=== PATIENT | female | born 1975 | race Caucasian/White ===

== ENCOUNTER 2018-09-10 11:53 | Emergency (ER) | payer OTHER ==
[~2018-09-10] VITALS: Ht 170.2 cm; Wt 77.1 kg
[2018-09-10] MEDS ORDERED: IV NORMAL SALINE 1,000ML 1,000 ML IV SCH (12:34)
--- NOTE | 2018-09-10 12:41 | PHYS DOC ---
Past History Past Medical History: Kidney Stones, Migraines, Other Additional Past Medical Histor: postmenopausal Past Surgical History: Tonsillectomy, Other Additional Past Surgical Histo: knee surgery, lithotripsy Smoking: Non-smoker Alcohol Use: None Drug Use: None Adult General Chief Complaint Chief Complaint: DIZZY/LIGHT HEADED HPI HPI Patient is a 43-year-old female presents with dizziness. She describes it as a lightheaded feeling, worse with going from sitting to standing. This started last night. Patient has been sick for the past 2 weeks with some sinus congestion, a cough, and low-grade fever in the 99 range. She was started on a Z -Geremias 3 days ago. Symptoms have not improved and have actually become worse as noted. Nothing makes the cough better or worse. Sitting makes the dizziness better. There is no rotational component. No head trauma. Patient has a history of migraines but denies there being any headache. No chest pain or palpitations. Symptoms are moderate in intensity[] Review of Systems Review of Systems Constitutional: Denies weight loss or chills [] Eyes: Denies change in visual acuity, redness, or eye pain [] HENT: Denies ear pain or sore throat [] Respiratory: Denies shortness of breath, see history of present illness [] Cardiovascular: No chest pain or palpitations[] GI: Denies abdominal pain, nausea, vomiting, bloody stools or diarrhea [] : Denies dysuria or hematuria [] Musculoskeletal: Denies back pain or joint pain [] Integument: Denies rash or skin lesions [] Neurologic: Denies headache, focal weakness or sensory changes [] Endocrine: Denies polyuria or polydipsia [] All other systems were reviewed and found to be within normal limits, except as documented in this note. Physical Exam Physical Exam Constitutional: Well developed, well nourished, no acute distress, non-toxic appearance. [] HENT: Normocephalic, atraumatic, bilateral external ears normal, oropharynx moist, no oral exudates, nose normal. Bilateral maxillary sinus tenderness to percussion [] Eyes: PERRLA, EOMI, conjunctiva normal, no discharge. [] Neck: Normal range of motion, no tenderness, supple, no stridor. [] Cardiovascular:Heart rate regular rhythm, no murmur [] Lungs & Thorax: Bilateral breath sounds clear to auscultation [] Abdomen: Bowel sounds normal, soft, no tenderness, no masses, no pulsatile masses. [] Skin: Warm, dry, no erythema, no rash. [] Back: No tenderness, no CVA tenderness. [] Extremities: No tenderness, no cyanosis, no clubbing, ROM intact, no edema. [] Neurologic: Alert and oriented X 3, normal motor function, normal sensory function, no focal deficits noted. No nystagmus noted[] Psychologic: Affect normal, judgement normal, mood normal. [] EKG EKG [] Radiology/Procedures Radiology/Procedures [] Course & Med Decision Making Course & Med Decision Making Pertinent Labs and Imaging studies reviewed. (See chart for details) ED course: Patient arrived, was placed in bed, and tolerated exam well. Her initial orthostatic vital signs showed a decreasing blood pressure she stood up as well as an increase in heart rate of 25 when going from laying to standing. She was given IV fluids for this. She had some improvement with the IV fluids. X-ray was obtained without any complications. After the return of the laboratory and imaging findings, these were discussed with the patient voiced understanding. All questions were answered. She was discharged in improved condition. Medical decision making: There is no evidence of pneumonia, no pneumothorax, no evidence of an acute coronary syndrome, dysrhythmia, nor significant electrolyte abnormality.[] Dragon Disclaimer Dragon Disclaimer This electronic medical record was generated, in whole or in part, using a voice recognition dictation system. Departure Departure: Impression: Primary Impression: Dizziness Additional Impressions: Dehydration Cough Disposition: 01 HOME, SELF-CARE Condition: IMPROVED Patient Instructions: Cough, Adult, Dehydration, Adult, Dizziness Additional Instructions: Drink plenty of fluids. Follow-up with your regular doctor in 2 days. If you do not have regular doctor list of local clinics will be provided. Return to the ER if worsening dizziness or any other concerns. Scripts Benzonatate (TESSALON PERLE) 100 Mg Capsule 1 CAP PO TID for cough, #30 CAP Prov: TERA DIAZ DO 09/10/18 Albuterol Sulfate (VENTOLIN HFA INHALER) 18 Gm Hfa.aer.ad 2 PUFF IH PRN Q4HRS PRN for FOR ASTHMA, #1 INHALER 0 Refills Prov: TERA DIAZ DO 09/10/18 Problem Qualifiers TERA DIAZ DO Sep 10, 2018 12:41
[2018-09-10 13:06] LABS: BASO % 1 % (0-3); EOS # 0.1 x10^3/uL (0.0-0.7); EOS % 3 % (0-3); HEMATOCRIT 42.3 % (36.0-47.0); HEMOGLOBIN 14.1 g/dL (12.0-15.5); LYMPH # 1.4 x10^3/uL (1.0-4.8); LYMPH % 29 % (24-48); MEAN CORPUSCULAR HEMOGLOBIN 31 pg (25-35); MEAN CORPUSCULAR HGB CONC 33 g/dL (31-37); MEAN CORPUSCULAR VOLUME 92 fL (79-100); MONO # 0.3 x10^3/uL (0.0-1.1); MONO % 6 % (0-9); NEUT # 3.1 x10^3uL (1.8-7.7); NEUT % 61 % (31-73); PLATELET COUNT 311 x10^3/uL (140-400); RED CELL DISTRIBUTION WIDTH 12.9 % (11.5-14.5)
--- NOTE | 2018-09-10 13:17 | RAD ---
PORTABLE CHEST 1V History: Dizziness Comparison: None. Findings: Single view of the chest is submitted. There is no infiltrate, pneumothorax, or effusion. The pericardial cardiac silhouette is within normal limits in size. Impression: 1. There is no radiographic evidence of acute cardiopulmonary disease. Electronically signed by: Margarito Guzman MD (09/10/2018 1:14 PM) [id number]
[2018-09-10 13:27] LABS: ALBUMIN 3.6 g/dL (3.4-5.0); ALBUMIN/GLOBULIN RATIO 0.9 (1.0-1.7); CALCIUM 8.7 mg/dL (8.5-10.1); CREATININE 0.7 mg/dL (0.6-1.0); GFR 90.5; MAGNESIUM 2.2 mg/dL (1.8-2.4); POTASSIUM 3.9 mmol/L (3.5-5.1); TOTAL BILIRUBIN 0.2 mg/dL (0.2-1.0); TOTAL PROTEIN 7.4 g/dL (6.4-8.2)
[2018-09-10] MEDS ORDERED: ONDANSETRON PF 4 MG/2 ML VIAL. ONE (13:35)
[2018-09-10 13:42] VITALS: BP 114/79
[2018-09-10] MEDS ORDERED: BENZ100C PO (14:40)
[2018-09-10] MEDS ORDERED: ALBU2.5V8 IH (14:40)
--- NOTE | 2018-09-11 07:47 | EKG ---
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
== END 2018-09-10 15:00 | disposition home or self-care (01) ==
LOC: ER 11:53
DX: E86.0 Dehydration (principal); R42 Dizziness and giddiness; G43.909 Migraine, unspecified, not intractable, without status migrainosus; Z87.442 Personal history of urinary calculi
CPT/HCPCS: 36415; 71045; 80053; 83735; 83880; 84443; 84484; 85025; 85610; 93005; 96360; 96361; 99285-25; J7030

== ENCOUNTER 2018-11-16 13:49 | Emergency (ER) | payer OTHER ==
[~2018-11-16] VITALS: Ht 170.2 cm; Wt 80.6 kg
[~2018-11-16 13:49] MED LIST: ALBU2.5V8 IH; BENZ100C PO
[2018-11-16 14:14] VITALS: BP 121/64
[2018-11-16] MEDS ORDERED: PRED50TA PO (14:27)
[2018-11-16] MEDS ORDERED: FAMO-63 PO (14:27)
--- NOTE | 2018-11-16 14:27 | PHYS DOC ---
Past History Past Medical History: Kidney Stones, Migraines, Other Additional Past Medical Histor: postmenopausal Past Surgical History: Tonsillectomy, Other Additional Past Surgical Histo: knee surgery, lithotripsy Smoking: Non-smoker Alcohol Use: Occasionally Drug Use: None Adult General Chief Complaint Chief Complaint: SKIN RASH/ABSCESS HPI HPI Patient is a 43-year-old female presents with a generalized body rash that started 30-45 minutes prior to arrival. It was worse at onset then and is now. Painful and it she. She is allergic to Benadryl, gets a dystonic reaction, and did not take anything for the rash. There is no identifiable triggers such as a new food, fish, shellfish, new detergents lotions or skin creams. No difficulty breathing or nausea or vomiting with this. Symptoms were moderate to severe initially, now mild to moderate in intensity.[] Review of Systems Review of Systems Constitutional: Denies fever or chills [] Eyes: Denies change in visual acuity, redness, or eye pain [] HENT: Denies nasal congestion or sore throat [] Respiratory: Denies cough or shortness of breath [] Cardiovascular: No chest pain or palpitations[] GI: Denies abdominal pain, nausea, vomiting, bloody stools or diarrhea [] : Denies dysuria or hematuria [] Musculoskeletal: Denies back pain or joint pain [] Integument: See history of present illness[] Neurologic: Denies headache, focal weakness or sensory changes [] Endocrine: Denies polyuria or polydipsia [] All other systems were reviewed and found to be within normal limits, except as documented in this note. Allergies Allergies Allergies Coded Allergies Type Severity Reaction Last Updated Verified prochlorperazine Allergy Unknown 09/10/18 Yes promethazine Allergy Unknown 09/10/18 Yes Physical Exam Physical Exam Constitutional: Well developed, well nourished, no acute distress, non-toxic appearance. [] HENT: Normocephalic, atraumatic, bilateral external ears normal, oropharynx moist, no oral exudates, nose normal. [] Eyes: PERRLA, EOMI, conjunctiva normal, no discharge. [] Neck: Normal range of motion, no tenderness, supple, no stridor. [] Cardiovascular:Heart rate regular rhythm, no murmur [] Lungs & Thorax: Bilateral breath sounds clear to auscultation [] Abdomen: Bowel sounds normal, soft, no tenderness, no masses, no pulsatile masses. [] Skin: Warm, dry, diffuse erythematous rash without palm or sole involvement. No skin sloughing. No petechiae. No ulcers. No ticks identified.. [] Back: No tenderness, no CVA tenderness. [] Extremities: No tenderness, no cyanosis, no clubbing, ROM intact, no edema. [] Neurologic: Alert and oriented X 3, normal motor function, normal sensory function, no focal deficits noted. [] Psychologic: Affect normal, judgement normal, mood normal. [] Current Patient Data Vital Signs Vital Signs Date Time Temp Pulse Resp B/P (MAP) Pulse Ox O2 Delivery O2 Flow Rate FiO2 11/16/18 14:14 97.7 97 18 97 Room Air EKG EKG [] Radiology/Procedures Radiology/Procedures [] Course & Med Decision Making Course & Med Decision Making Pertinent Labs and Imaging studies reviewed. (See chart for details) Medical decision making: There is no evidence of staph scalded skin syndrome, toxic epidermal necrolysis, anaphylaxis, nor King-Giorgi syndrome. Symptoms are improving prior to treatment. Patient has a known bee sting allergy and already has epinephrine pen available. ED course: Patient arrived, was placed in bed, and tolerated exam well. She was given initial dose of prednisone while in the emergency department. Discussed plan with patient, she voiced understanding. All questions were answered. She was discharged in improved condition.[] Dragon Disclaimer Dragon Disclaimer This electronic medical record was generated, in whole or in part, using a voice recognition dictation system. Departure Departure: Impression: Primary Impression: Urticaria Disposition: 01 HOME, SELF-CARE Condition: IMPROVED Referrals: SUDHAKAR FAY MD (PCP) Follow-up in 2 days Patient Instructions: Rash Additional Instructions: Follow-up with your regular doctor in 2 days. Take the medication as prescribed. Return to the ER if worsening rash, difficulty breathing, or any other concerns. Scripts Prednisone (PREDNISONE) 50 Mg Tablet 1 TAB PO DAILY for INFLAMMATION, #5 TAB Prov: TERA DIAZ DO 11/16/18 Famotidine (PEPCID) 20 Mg Tablet 1 TAB PO BID for allergic reaction, #20 TAB 0 Refills Prov: TERA DIAZ DO 11/16/18 TERA DIAZ DO Nov 16, 2018 14:27
[2018-11-16] MEDS ORDERED: predniSONE 10 MG TABLET PO ONE (14:30)
== END 2018-11-16 14:34 | disposition home or self-care (01) ==
LOC: ER 13:49
DX: L50.9 Urticaria, unspecified (principal); G43.909 Migraine, unspecified, not intractable, without status migrainosus; Z87.442 Personal history of urinary calculi; Z88.8 Allergy status to other drugs, medicaments and biological substances
CPT/HCPCS: 99283; J7512

== ENCOUNTER 2018-12-10 12:47 | Emergency (ER) | payer OTHER ==
[~2018-12-10] VITALS: Ht 170.2 cm; Wt 80.6 kg
[~2018-12-10 12:47] MED LIST changes: +FAMO-63 PO; +PRED50TA PO
[2018-12-10 12:50] VITALS: BP 128/64
[2018-12-10] MEDS ORDERED: KETOROLAC 30 MG/ML VIAL. IV ONE (13:00)
[2018-12-10] MEDS ORDERED: IV NORMAL SALINE 1,000ML 1,000 ML IV ONE (13:00)
[2018-12-10] MEDS ORDERED: DEXAMETHASONE SOD PHOS 4 MG/ML VIAL IV ONE (13:00)
[2018-12-10] MEDS ORDERED: METOCLOPRAMIDE HCL 10 MG/2 ML VIAL. IV ONE (13:00)
--- NOTE | 2018-12-10 13:00 | PHYS DOC ---
Past History Past Medical History: Kidney Stones, Migraines, Other Additional Past Medical Histor: postmenopausal Past Surgical History: Tonsillectomy, Other Additional Past Surgical Histo: knee surgery, lithotripsy Smoking: Non-smoker Alcohol Use: Occasionally Drug Use: None Adult General Chief Complaint Chief Complaint: HEADACHE HPI HPI 43-year-old female presents to the emergency department with complaints of migraine. Patient states migraines or last night, she has a history of migraine this is typical for her previous diagnosis of migraines Storm. She used 3 intranasal Imitrex as well as Zofran every 2 hours without relief. She is well d escribes history of hypoglycemia, hypomagnesemia. Patient describes continued nausea, vomiting, sensitive to light and sound. She does have allergy to Benadryl. Patient has no neurologic symptoms or complaints upon exam aside from that of headache again of which is typical presentation for her migraine history. Review of Systems Review of Systems Constitutional: Denies fever or chills [] Eyes: Denies change in visual acuity, redness, or eye pain [] Respiratory: Denies cough or shortness of breath [] Cardiovascular: No additional information not addressed in HPI [] GI: nausea, vomiting, : Denies dysuria or hematuria [] Musculoskeletal: Denies back pain or joint pain [] Integument: Denies rash or skin lesions [] Neurologic: Migraine headache All other systems were reviewed and found to be within normal limits, except as documented in this note. Allergies Allergies Allergies Coded Allergies Type Severity Reaction Last Updated Verified diazepam Allergy Unknown 11/16/18 Yes diphenhydramine Allergy Unknown 11/16/18 Yes midazolam Allergy Unknown 11/16/18 Yes prochlorperazine Allergy Unknown 09/10/18 Yes promethazine Allergy Unknown 09/10/18 Yes Physical Exam Physical Exam Constitutional: Well developed, well nourished, acute distress secondary to pain, non-toxic appearance. [] HENT: Normocephalic, atraumatic, bilateral external ears normal, oropharynx moist, no oral exudates, nose normal. [] Eyes: PERRLA, EOMI Cardiovascular:Heart rate regular rhythm, no murmur [] Lungs & Thorax: Bilateral breath sounds clear to auscultation [] Abdomen: Bowel sounds normal, soft, no tenderness, no masses, no pulsatile masses. [] Skin: Warm, dry, no erythema, no rash. [] Neurologic: Alert and oriented X 3, no focal deficits noted. [] Psychologic: Affect normal, judgement normal, mood normal. [] Current Patient Data Vital Signs Blood Pressure Systolic * 128 mm Hg (100-140) Blood Pressure Diastolic * 64 mm Hg (60-100) Blood Pressure Mean * 85 mm Hg Pulse Rate * 97 beats per minute (60-90) H Respiratory Rate * 18 breaths per minute (12-24) Oxygen Delivery Method * Room Air Bedside Pulse Oximetry * 99 % Treatment Prior to Arrival Lab Results Laboratory Tests Test 12/10/18 13:04 12/10/18 13:40 Sodium Level 144 mmol/L Potassium Level 3.7 mmol/L Chloride Level 107 mmol/L Carbon Dioxide Level 30 mmol/L Anion Gap 7 Blood Urea Nitrogen 10 mg/dL Creatinine 0.7 mg/dL Estimated GFR (Cockcroft-Gault) 90.5 BUN/Creatinine Ratio 14 Glucose Level 100 mg/dL Calcium Level 8.5 mg/dL Magnesium Level 2.0 mg/dL Total Bilirubin 0.2 mg/dL Aspartate Amino Transf (AST/SGOT) 15 U/L Alanine Aminotransferase (ALT/SGPT) 30 U/L Alkaline Phosphatase 68 U/L Total Protein 7.0 g/dL Albumin 3.4 g/dL Albumin/Globulin Ratio 0.9 Glucose (Fingerstick) 121 mg/dL Current Medications Medications (Trade) Dose Ordered Sig/Raymond Route PRN Reason Start Time Stop Time Status Last Admin Dose Admin Ketorolac Tromethamine (Toradol 30mg Vial) 30 mg 1X ONCE IV 12/10/18 13:00 12/10/18 13:01 DC 12/10/18 13:11 Metoclopramide HCl (Reglan Vial) 10 mg 1X ONCE IV 12/10/18 13:00 12/10/18 13:01 DC 12/10/18 13:11 Dexamethasone Sodium Phosphate (Decadron) 4 mg 1X ONCE IV 12/10/18 13:00 12/10/18 13:01 DC 12/10/18 13:11 Sodium Chloride 1,000 ml @ 1,000 mls/hr 1X ONCE IV 12/10/18 13:00 12/10/18 13:59 DC 12/10/18 13:11 Ondansetron HCl (Zofran) 4 mg 1X ONCE IV 12/10/18 14:15 12/10/18 14:16 DC Acetaminophen/ Butalbital/ Caffeine (Fioricet) 1 tab 1X ONCE PO 12/10/18 14:15 12/10/18 14:16 UNV EKG EKG [] Radiology/Procedures Radiology/Procedures [] Course & Med Decision Making Course & Med Decision Making Pertinent Labs and Imaging studies reviewed. (See chart for details) []43-year-old female presents to the emergency department with complaints of migraine. Patient states migraines or last night, she has a history of migraine this is typical for her previous diagnosis of migraines Storm. She used 3 intranasal Imitrex as well as Zofran every 2 hours without relief. She is well describes history of hypoglycemia, hypomagnesemia. Patient describes continued nausea, vomiting, sensitive to light and sound. She does have allergy to Benadryl. Patient has no neurologic symptoms or complaints upon exam aside from that of headache again of which is typical presentation for her migraine history. Patient provided with Toradol, Reglan, Decadron - she states she has had improvement of her headache however still has some nausea. Zofran 4mg IV x 1. Patient has had no vomiting since arrival however. Fioricet po x 1 Dragon Disclaimer Dragon Disclaimer This electronic medical record was generated, in whole or in part, using a voice recognition dictation system. Departure Departure: Impression: Primary Impression: Migraine headache Disposition: 01 HOME, SELF-CARE Condition: IMPROVED Referrals: SUDHAKAR FAY MD (PCP) Patient Instructions: Migraine Headache, [id number] Additional Instructions: Recommend continuing preventive regimen as scheduled Labs reviewed Tylenol/Motrin as needed for pain Return to the ER with worsening headache, visual changes, fever, altered mental status Scripts Butalbital/Aspirin/Caffeine (FIORINAL 50-325-40 MG CAPSULE) 1 Each Capsule 1 EACH PO QID PRN for HEADACHE, #14 CAP Prov: VIOLET MC MD 12/10/18 VIOLET MC MD Dec 10, 2018 13:00
[2018-12-10 13:49] LABS: ALBUMIN 3.4 g/dL (3.4-5.0); ALBUMIN/GLOBULIN RATIO 0.9 (1.0-1.7); CALCIUM 8.5 mg/dL (8.5-10.1); CREATININE 0.7 mg/dL (0.6-1.0); GFR 90.5; POTASSIUM 3.7 mmol/L (3.5-5.1); TOTAL BILIRUBIN 0.2 mg/dL (0.2-1.0)
[2018-12-10] MEDS ORDERED: ONDANSETRON PF 4 MG/2 ML VIAL. IV ONE (14:15)
[2018-12-10] MEDS ORDERED: BUTA1CAP31 PO (14:22)
[2018-12-10] MEDS ORDERED: BUTALB/APAP/CAFEIN 50/325/40MG TABLET. PO ONE (14:30)
== END 2018-12-10 14:41 | disposition home or self-care (01) ==
LOC: ER 12:47
DX: G43.909 Migraine, unspecified, not intractable, without status migrainosus (principal); R11.2 Nausea with vomiting, unspecified; Z87.442 Personal history of urinary calculi; Z88.8 Allergy status to other drugs, medicaments and biological substances
CPT/HCPCS: 36415; 80053; 82947; 83735; 96361; 96374; 96375; 99284; J1100; J1885; J2765; J7030

== ENCOUNTER → 2019-01-29 | Outpatient (CLI) | payer OTHER ==
[~2019-01-29] MED LIST changes: +BUTA1CAP31 PO
--- NOTE | 2019-01-29 14:44 | RAD ---
DATE: 01/29/2019 1:38 PM EXAM: MAMMO [facility] SCREENING BILATERAL HISTORY: Screening mammogram COMPARISON: None. Bilateral CC and MLO views of the breasts were performed. Bilateral breast tomosynthesis was performed in CC and MLO projections. This study was interpreted with the benefit of Computerized Aided Detection (CAD). FINDINGS: Breast Density: HETERO The breast parenchyma Is heterogeneously dense, which could reduce sensitivity of mammography. Breast parenchyma level C No suspicious masses, microcalcifications or architectural distortion is present to suggest malignancy in either breast. The visualized axillae are unremarkable. IMPRESSION: No mammographic evidence of malignancy. BI-RADS CATEGORY: 1 NEGATIVE RECOMMENDED FOLLOW-UP: 12M 12 MONTH FOLLOW-UP Annual screening mammography is recommended, unless clinically indicated sooner based on symptoms or change in physical exam. PQRS compliance statement: Patient information was entered into a reminder system with a target due date one year for the next mammogram. Mammography is a sensitive method for finding small breast cancers, but it does not detect them all and is not a substitute for careful clinical examination. A negative mammogram does not negate a clinically suspicious finding and should not result in delay in biopsying a clinically suspicious abnormality. "Our facility is accredited by the [employer] Mammography Program."
== END | disposition home or self-care (01) ==
LOC: MAMMO 12:28
PROVIDERS: ATTEND Family Medicine
DX: Z12.31 Encounter for screening mammogram for malignant neoplasm of breast (principal)
CPT/HCPCS: 77063; 77067

== ENCOUNTER 2019-02-27 23:22 | Emergency (ER) | payer OTHER ==
[~2019-02-27] VITALS: Ht 170.2 cm; Wt 77.1 kg
[2019-02-27 23:32] VITALS: BP 123/73
[2019-02-27] MEDS ORDERED: HYDR-1179 PO (23:50)
[2019-02-27] MEDS ORDERED: CEPH-264 PO (23:50)
[2019-02-27] MEDS ORDERED: CEPHALEXIN 250 MG CAPSULE PO ONE (23:55)
[2019-02-28] MEDS ORDERED: FLUC100T7 PO ×2 (00:06)
--- NOTE | 2019-02-28 01:04 | PHYS DOC ---
Past History Past Medical History: Kidney Stones, Migraines Additional Past Medical Histor: postmenopausal Past Surgical History: No Surgical History Additional Past Surgical Histo: knee surgery, lithotripsy Smoking: Non-smoker Alcohol Use: None Drug Use: None Adult General Chief Complaint Chief Complaint: DENTAL PROBLEM.. ". ... I got a brisle or something off my tooth brush stuck in my gum... and it gotten infected.. I did get some pus out of the gum line.. 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 . Patient been treating the pain with [id number] Tylenol and ibuprofen but noticed marked inflammation and pus tonight. Patient has been able get into the dentist this weekend because of the holidays. Patient is normally healthy. No history immunosuppression. Patient normally healthy. Review of Systems Review of Systems Constitutional: Denies fever or chills [] Eyes: Denies change in visual acuity, redness, or eye pain [] HENT: Denies nasal congestion or sore throat [. The patient]complaints of left lower molar dental pain and pus drainage Respiratory: Denies cough or shortness of breath [] Cardiovascular: No additional information not addressed in HPI [] GI: Denies abdominal pain, nausea, vomiting, bloody stools or diarrhea [] : Denies dysuria or hematuria [] Musculoskeletal: Denies back pain or joint pain [] Integument: Denies rash or skin lesions [] Neurologic: Denies headache, focal weakness or sensory changes [] Endocrine: Denies polyuria or polydipsia [] All other systems were reviewed and found to be within normal limits, except as documented in this note. Family History Family History Noncontributory Current Medications Current Medications Current Medications Medications (Trade) Dose Ordered Sig/Raymond Start Time Stop Time Status Last Admin Dose Admin Cephalexin HCl (Keflex) 500 mg 1X ONCE 02/27/19 23:55 02/27/19 23:56 DC 02/27/19 23:56 500 MG Allergies Allergies Allergies Coded Allergies Type Severity Reaction Last Updated Verified diazepam Allergy Unknown 11/16/18 Yes diphenhydramine Allergy Unknown 11/16/18 Yes midazolam Allergy Unknown 11/16/18 Yes prochlorperazine Allergy Unknown 09/10/18 Yes promethazine Allergy Unknown 09/10/18 Yes Physical Exam Physical Exam Constitutional: Well developed, well nourished, in acute distress, non-toxic appearance. [] HENT: Normocephalic, atraumatic, bilateral external ears normal, oropharynx moist, no oral exudates, nose normal. []Adenopathy at ankle jaw on left. Some pus drainage around the base of molars 18 and 19 Eyes: PERRLA, EOMI, conjunctiva normal, no discharge. [] Neck: Normal range of motion, no tenderness, supple, no stridor. [] Cardiovascular:Heart rate regular rhythm, no murmur [] Lungs & Thorax: Bilateral breath sounds clear to auscultation [] Abdomen: Bowel sounds normal, soft, no tenderness, no masses, no pulsatile masses. [] Skin: Warm, dry, no erythema, no rash. [] Back: No tenderness, no CVA tenderness. [] Extremities: No tenderness, no cyanosis, no clubbing, ROM intact, no edema. [] Neurologic: Alert and oriented X 3, normal motor function, normal sensory function, no focal deficits noted. [] Psychologic: Affect normal, judgement normal, mood normal. [] Current Patient Data Vital Signs Vital Signs Date Time Temp Pulse Resp B/P (MAP) Pulse Ox O2 Delivery O2 Flow Rate FiO2 02/27/19 23:32 98.1 75 18 100 Room Air EKG EKG [] Radiology/Procedures Radiology/Procedures [] Course & Med Decision Making Course & Med Decision Making Pertinent Labs and Imaging studies reviewed. (See chart for details). Rinse mouth with peroxide and her Listerine 4 times a day. Patient take Keflex 500 mg 3 times a day. After 10 days. Take Diflucan for yeast suppression. Follow-up with [facility]. Tylenol and ibuprofen for pain. May take Vicoprofen up 4 times a day for marked pain. Return if any concerns. []Impression: 1. Dental Pain 2. Abscess Dragon Disclaimer Dragon Disclaimer This electronic medical record was generated, in whole or in part, using a voice recognition dictation system. Departure Departure: Impression: Primary Impression: Abscess Additional Impression: Pain, dental Disposition: 01 HOME/RESIDENCE PRIOR TO ADM Condition: GUARDED Patient Instructions: Dental Pain, [id number] Additional Instructions: Rinse mouth with peroxide and or Listerine 4 x day. Take Keflex 500 three times a day. If develope pointing abscess may need drainage. Have concerns for infection along the Molar root and abscess formation. Must follow up with Dentist. Take Keflex 500 three times a day. Tylenol and Ibuprofen for pain. Vicoprofen for marked pain. Scripts Fluconazole (DIFLUCAN) 100 Mg Tablet 100 MG PO DAILY for POST ANTIBIOTICS, #3 TAB Prov: CRISTINE SWAIN MD 02/28/19 Fluconazole (DIFLUCAN) 100 Mg Tablet 100 MG PO DAILY for POST ANTIBIOTICS for 3 Days, #3 TAB Prov: CRISTINE SWAIN MD 02/28/19 Hydrocodone/Ibuprofen (HYDROCODONE-IBUPROFEN 7.5-200 ) 1 Each Tablet 1 TAB PO PRN Q6HRS PRN for PAIN, #30 TAB 0 Refills Prov: CRISTINE SWAIN MD 02/27/19 Cephalexin (KEFLEX) 500 Mg Capsule 500 MG PO TID for abscess, #30 BOTTLE Prov: CRISTINE SWAIN MD 02/27/19 Dragon Disclaimer This chart was dictated in whole or in part using Voice Recognition software in a busy, high-work load, and often noisy Emergency Department environment. It may contain unintended and wholly unrecognized errors or omissions. Problem Qualifiers CRISTINE SWAIN MD Feb 28, 2019 01:04
== END 2019-02-27 23:55 | disposition home or self-care (01) ==
LOC: ER 23:22
DX: K04.7 Periapical abscess without sinus (principal); G43.909 Migraine, unspecified, not intractable, without status migrainosus; Z87.442 Personal history of urinary calculi; Z88.8 Allergy status to other drugs, medicaments and biological substances
CPT/HCPCS: 99283

== ENCOUNTER 2019-04-09 15:09 | Observation (INO) | payer OTHER ==
[~2019-04-09] VITALS: Ht 170.2 cm; Wt 85.4 kg
[~2019-04-09 15:09] MED LIST changes: +CEPH-264 PO; +FLUC100T7 PO; +HYDR-1179 PO
--- NOTE | 2019-04-09 15:42 | PHYS DOC ---
Past History Past Medical History: Kidney Stones, Migraines Additional Past Medical Histor: postmenopausal Past Surgical History: No Surgical History Additional Past Surgical Histo: knee surgery, lithotripsy Smoking: Non-smoker Alcohol Use: None Drug Use: None Adult General Chief Complaint Chief Complaint: CHEST PAIN [facility] HPI Patient is a 42-year-old female who presented to ER today for evaluation of left-sided chest pain radiating to her neck and her shoulder. 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 Eventually patient took one dose of nitroglycerin and the pain improved. So she came back to ER to be evaluated. She had no history of diabetes or hypertension. Patient had no history of coronary artery disease. She had no family history heart disease. Patient is not a smoker, she denies any recent travel or operation. She denies any cough or fever. All other ROS is negative unless otherwise noted in HPI Review of Systems Review of Systems See above Allergies Allergies Allergies Coded Allergies Type Severity Reaction Last Updated Verified diazepam Allergy Unknown 11/16/18 Yes diphenhydramine Allergy Unknown 11/16/18 Yes midazolam Allergy Unknown 11/16/18 Yes prochlorperazine Allergy Unknown 09/10/18 Yes promethazine Allergy Unknown 09/10/18 Yes Physical Exam Physical Exam See above Constitutional: Well developed, well nourished, no acute distress, non-toxic appearance. [] HENT: Normocephalic, atraumatic, bilateral external ears normal, oropharynx moist, no oral exudates, nose normal. [] Eyes: PERRLA, EOMI, conjunctiva normal, no discharge. [] Neck: Normal range of motion, no tenderness, supple, no stridor. [] Cardiovascular:Heart rate regular rhythm, no murmur [] Lungs & Thorax: Bilateral breath sounds clear to auscultation [] Abdomen: Bowel sounds normal, soft, no tenderness, no masses, no pulsatile masses. [] Skin: Warm, dry, no erythema, no rash. [] Back: No tenderness, no CVA tenderness. [] Extremities: No tenderness, no cyanosis, no clubbing, ROM intact, no edema. [] Neurologic: Alert and oriented X 3, normal motor function, normal sensory function, no focal deficits noted. [] Psychologic: Affect normal, judgement normal, mood normal. [] EKG EKG Age he would done at 3:15 PM, read by this physician with heart rate of 69 beats per minutes normal sinus rhythm, no ST elevation, Radiology/Procedures Radiology/Procedures [] Course & Med Decision Making Course & Med Decision Making Pertinent Labs and Imaging studies reviewed. (See chart for details) Patient's chest pain was improved with nitroglycerin, will admit her for observation Dragon Disclaimer Dragon Disclaimer This electronic medical record was generated, in whole or in part, using a voice recognition dictation system. Departure Departure: Impression: Primary Impression: Chest pain Disposition: ADMITTED INPATIENT Admitting Physician: Aleks Emmanuel Condition: STABLE Referrals: SUDHAKAR FAY MD (PCP) HEART Score for Chest Pain PTs The HEART Score for CP Pts HEART Score for Chest Pain: HEART Score for Chest Pain Response (Comments) Value History Slighlty/Non-Suspicious 0 ECG Normal 0 Age < 45 0 Risk Factors 1 or 2 Risk Factors 1 Troponin < Normal Limit 0 Total 1 Risk Factors: Risk Factors: DM, Current or recent (<one month) smoker, HTN, HLP, family history of CAD, obesity. Risk Scores: Score 0 - 3: 2.5% MACE over next 6 weeks - Discharge Home Score 4 - 6: 20.3% MACE over next 6 weeks - Admit for Clinical Observation Score 7 - 10: 72.7% MACE over next 6 weeks - Early Invasive Strategies LUIS DANIEL CLARK DO Apr 09, 2019 15:42
[2019-04-09] MEDS ORDERED: ASPIRIN 81 MG TAB.CHEW PO ONE (15:45)
--- NOTE | 2019-04-09 15:48 | EKG ---
[address] [address] Test Date: 2019-04-09 Test Time: 15:14:59 Pat Name: RAYMOND WONG Department: Room: Gender: F Product Builder: : 1975 Requested By: LUIS DANIEL CLARK Order Number: [id number] Reading MD: Measurements Intervals [place] Rate: 69 P: 48 FL: 144 QRS: -7 QRSD: 80 T: 48 QT: 388 QTc: 417 Interpretive Statements SINUS RHYTHM LEFT ATRIAL ABNORMALITY LEFTWARD AXIS T ABNORMALITY IN ANTERIOR LEADS ABNORMAL ECG RI6.01 No previous ECG available for comparison
--- NOTE | 2019-04-09 15:58 | RAD ---
PORTABLE CHEST 1V History: Chest pain Comparison: September 10, 2018 Findings: Single view of the chest is submitted. There is no infiltrate, pneumothorax, or effusion. The pericardial cardiac silhouette is within normal limits in size. Impression: 1. There is no radiographic evidence of acute cardiopulmonary disease. Electronically signed by: Margarito Guzman MD (04/09/2019 3:56 PM) [id number]
[2019-04-09 16:14] LABS: BASO # 0.1 x10^3/uL (0.0-0.2); BASO % 1 % (0-3); EOS # 0.1 x10^3/uL (0.0-0.7); EOS % 2 % (0-3); HEMOGLOBIN 13.2 g/dL (12.0-15.5); LYMPH # 2.3 x10^3/uL (1.0-4.8); LYMPH % 35 % (24-48); MEAN CORPUSCULAR HEMOGLOBIN 31 pg (25-35); MEAN CORPUSCULAR HGB CONC 34 g/dL (31-37); MEAN CORPUSCULAR VOLUME 90 fL (79-100); MONO # 0.5 x10^3/uL (0.0-1.1); MONO % 8 % (0-9); NEUT # 3.6 x10^3uL (1.8-7.7); NEUT % 55 % (31-73); PLATELET COUNT 278 x10^3/uL (140-400); RED BLOOD COUNT 4.31 x10^6/uL (3.50-5.40); WHITE BLOOD COUNT 6.6 x10^3/uL (4.0-11.0)
[2019-04-09 16:22] LABS: CALCIUM 8.9 mg/dL (8.5-10.1); CREATININE 0.7 mg/dL (0.6-1.0); GFR 90.5; POTASSIUM 3.7 mmol/L (3.5-5.1)
[2019-04-09 16:39] LABS: ALBUMIN 3.6 g/dL (3.4-5.0); ALBUMIN/GLOBULIN RATIO 1.1 (1.0-1.7); MAGNESIUM 2.1 mg/dL (1.8-2.4); TOTAL BILIRUBIN 0.2 mg/dL (0.2-1.0)
[2019-04-09] MEDS: NITROGLYCERIN SUBLINGUAL 0.4 MG BOTTLE OF 25. SL PRN ×3 (17:50→21:25)
[2019-04-09] MEDS ORDERED: DEXT30CA15 PO (19:15)
[2019-04-09 19:29] VITALS: BP 126/74
[2019-04-09] MEDS ORDERED: CITA40TA5 PO (19:57)
[2019-04-09] MEDS ORDERED: LINA145C PO (19:57)
[2019-04-09] MEDS ORDERED: MAGN500C10 PO (20:02)
[2019-04-09] MEDS ORDERED: mirapex (20:02)
[2019-04-09] MEDS ORDERED: ADDERALL XR (20:04)
[2019-04-09] MEDS ORDERED: CITALOPRAM 20 MG TABLET. PO SCH (21:00)
[2019-04-09 21:18] VITALS: BP 111/74
--- NOTE | 2019-04-09 21:31 | EKG ---
[address] [address] Test Date: 2019-04-09 Test Time: 21:30:26 Pat Name: RAYMOND WONG Department: Room: 119 A Gender: F Project Scheduler: : 1975 Requested By: FRANCIS MONTEIRO Order Number: [id number] Reading MD: Measurements Intervals [place] Rate: 65 P: 47 ND: 156 QRS: -6 QRSD: 84 T: 30 QT: 392 QTc: 413 Interpretive Statements SINUS RHYTHM LEFT ATRIAL ABNORMALITY LEFTWARD AXIS T ABNORMALITY IN ANTEROSEPTAL LEADS ABNORMAL ECG RI6.02 Compared to ECG 09/10/2018 13:02:27 Atrial abnormality now present Left-axis deviation now present T-wave abnormality now present ST (T wave) deviation no longer present
[2019-04-09 22:33] VITALS: BP 111/74
[2019-04-10 05:17] VITALS: BP 112/74
[2019-04-10] MEDS ORDERED: MAGNESIUM OXIDE 400 MG TABLET PO SCH (09:00)
[2019-04-10 10:45] VITALS: BP 108/68
[2019-04-10 11:53] VITALS: BP 108/68
[2019-04-10] MEDS: NITROGLYCERIN SUBLINGUAL 0.4 MG BOTTLE OF 25. SL PRN (11:53)
--- NOTE | 2019-04-10 12:29 | PDOC2 ---
CONSULT Date of Admission DATE: 04/10/19 TIME: 12:28 Reason for Consult: Chest pain Referring Physician: Dr. Emmanuel Chief Complaint Chest pain Source: Chart review, Patient Problem List Problems Medical Problems: (1) Chest pain Status: Acute History of Present Illness 43-year-old female presented complaining of retrosternal chest pressure associated with diaphoresis and was relieved with sublingual nitroglycerin. She had another episode after admission and was again relieved with nitroglycerin. She denied any orthopnea/PND, palpitations or syncope. She has strong family history of premature coronary artery disease and hence is very concerned about it. Past Medical History Nephrolithiasis ADHD Migraine Depression Past Surgical History Right knee arthroscopic surgery Tonsillectomy Cystoscopy Lithotripsy Family History Positive for premature coronary artery disease, diabetes and hypertension Social History Patient denied any smoking or drug abuse but admitted to social intake of alcohol Current Medications Current Medications Aspirin (Children'S Aspirin) 324 mg 1X ONCE PO Last administered on 04/09/19at 15:30; Start 04/09/19 at 15:45; Stop 04/09/19 at 15:46; Status DC Nitroglycerin (Nitrostat) 0.4 mg PRN Q5MIN PRN SL CHEST PAIN Last administered on 04/10/19at 11:53; Start 04/09/19 at 17:45 Citalopram Hydrobromide (CeleXA) 40 mg HS PO Last administered on 04/09/19at 21:24; Start 04/09/19 at 21:00 Lubiprostone (Amitiza) 24 mcg BIDWMEALS PO ; Start 04/10/19 at 17:00 Magnesium Oxide (Magnesium Oxide) 2,000 mg DAILY PO Last administered on 04/10/19at 08:36; Start 04/10/19 at 09:00 Active Scripts Active Diflucan (Fluconazole) 100 Mg Tablet 100 Mg PO DAILY Diflucan (Fluconazole) 100 Mg Tablet 100 Mg PO DAILY 3 Days Hydrocodone-Ibuprofen 7.5-200 (Hydrocodone/Ibuprofen) 1 Each Tablet 1 Tab PO PRN Q6HRS PRN Keflex (Cephalexin) 500 Mg Capsule 500 Mg PO TID Fiorinal 50-325-40 Mg Capsule (Butalbital/Aspirin/Caffeine) 1 Each Capsule 1 Each PO QID PRN Prednisone 50 Mg Tablet 1 Tab PO DAILY Pepcid (Famotidine) 20 Mg Tablet 1 Tab PO BID Tessalon Perle (Benzonatate) 100 Mg Capsule 1 Cap PO TID Ventolin Hfa Inhaler (Albuterol Sulfate) 18 Gm Hfa.aer.ad 2 Puff IH PRN Q4HRS PRN Reported [Adderall Xr] [mirapex] Magnesium (Magnesium Oxide) 500 Mg Capsule 2,000 Mg PO DAILY Linzess (Linaclotide) 145 Mcg Capsule 145 Mcg PO QODAY Citalopram Hbr (Citalopram Hydrobromide) 40 Mg Tablet 40 Mg PO HS Dextroamp-Amphet Er 30 Mg Cap (Dextroamphetamine/Amphetamine) 30 Mg Cap.er.24h 1 Tab PO DAILY Allergies: Coded Allergies: diazepam (Verified Allergy, Unknown, 11/16/18) diphenhydramine (Verified Allergy, Unknown, 11/16/18) midazolam (Verified Allergy, Unknown, 11/16/18) prochlorperazine (Verified Allergy, Unknown, 09/10/18) promethazine (Verified Allergy, Unknown, 09/10/18) PSYCHOLOGICAL ROS: No: Hallucinations Eyes: No: Loss of vision HEENT: No: Epistaxis Respiratory: No: Hemoptysis Cardiovascular: yes: Chest Pain Gastrointestinal: No: Vomiting, Diarrhea Genitourinary: No: Hen[place]ia Neurological: No: Seizures Skin: No: Rash General: Alert, Oriented X3 HEENT: Atraumatic, PERRLA Lungs: Clear to auscultation Heart: Regular rate Abdomen: Soft, No tenderness Extremities: No edema Psych/Mental Status: Mood NL VITALS Vital Signs Date Time Temp Pulse Resp B/P (MAP) Pulse Ox O2 Delivery O2 Flow Rate FiO2 04/10/19 11:53 56 108/68 04/10/19 10:45 97.6 20 96 Room Air Labs Laboratory Tests Test 04/09/19 15:30 04/09/19 20:20 04/09/19 23:41 White Blood Count 6.6 x10^3/uL (4.0-11.0) Red Blood Count 4.31 x10^6/uL (3.50-5.40) Hemoglobin 13.2 g/dL (12.0-15.5) Hematocrit 39.0 % (36.0-47.0) Mean Corpuscular Volume 90 fL (79-100) Mean Corpuscular Hemoglobin 31 pg (25-35) Mean Corpuscular Hemoglobin Concent 34 g/dL (31-37) Red Cell Distribution Width 13.0 % (11.5-14.5) Platelet Count 278 x10^3/uL (140-400) Neutrophils (%) (Auto) 55 % (31-73) Lymphocytes (%) (Auto) 35 % (24-48) Monocytes (%) (Auto) 8 % (0-9) Eosinophils (%) (Auto) 2 % (0-3) Basophils (%) (Auto) 1 % (0-3) Neutrophils # (Auto) 3.6 x10^3uL (1.8-7.7) Lymphocytes # (Auto) 2.3 x10^3/uL (1.0-4.8) Monocytes # (Auto) 0.5 x10^3/uL (0.0-1.1) Eosinophils # (Auto) 0.1 x10^3/uL (0.0-0.7) Basophils # (Auto) 0.1 x10^3/uL (0.0-0.2) Prothrombin Time 9.4 SEC (9.4-11.4) Prothromb Time International Ratio 0.9 (0.9-1.1) Activated Partial Thromboplast Time 26 SEC (23-33) D-Dimer (Maryjo) < 0.19 mg/L (0.00-0.50) Sodium Level 143 mmol/L (136-145) Potassium Level 3.7 mmol/L (3.5-5.1) Chloride Level 106 mmol/L (98-107) Carbon Dioxide Level 29 mmol/L (21-32) Anion Gap 8 (6-14) Blood Urea Nitrogen 15 mg/dL (7-20) Creatinine 0.7 mg/dL (0.6-1.0) Estimated GFR (Cockcroft-Gault) 90.5 BUN/Creatinine Ratio 21 (6-20) Glucose Level 87 mg/dL (70-99) Calcium Level 8.9 mg/dL (8.5-10.1) Magnesium Level 2.1 mg/dL (1.8-2.4) Total Bilirubin 0.2 mg/dL (0.2-1.0) Aspartate Amino Transf (AST/SGOT) 18 U/L (15-37) Alanine Aminotransferase (ALT/SGPT) 35 U/L (14-59) Alkaline Phosphatase 61 U/L (46-116) Creatine Kinase 79 U/L (26-192) Creatine Kinase MB (Mass) 1.2 ng/mL (0.0-3.6) Creatine Kinase MB Relative Index 1.5 % (0-4) Troponin I Quantitative < 0.017 ng/mL (0-0.055) < 0.017 ng/mL (0-0.055) < 0.017 ng/mL (0-0.055) FC-Tzs-E-Type Natriuretic Peptide 65 pg/mL (0-124) Total Protein 7.0 g/dL (6.4-8.2) Albumin 3.6 g/dL (3.4-5.0) Albumin/Globulin Ratio 1.1 (1.0-1.7) Lipase 243 U/L (73-393) Assessment/Plan Chest pain with typical features and relieved with nitroglycerin in a patient with family history of premature coronary disease. Myocardial infarction has been ruled out. Symptoms concerning for unstable angina. We will proceed with cardiac catheterization and possible angioplasty. Risks and benefits were explained and she is agreeable. Thank you for your consultation. STEPHANY MARQUEZ MD Apr 10, 2019 12:28
[2019-04-10] MEDS ORDERED: CAFFEINE PO PRN (13:30)
[2019-04-10] MEDS ORDERED: BUTALBITAL PO PRN (13:30)
[2019-04-10] MEDS ORDERED: ALBUTEROL SULFATE 2.5 MG/3 ML NEBU. IH PRN (13:30)
[2019-04-10] MEDS ORDERED: ASPIRIN PO PRN (13:30)
[2019-04-10] MEDS ORDERED: HYDROcodon/IBUPROFEN 7.5/200MG 1 TAB TABLET PO PRN (13:30)
[2019-04-10] MEDS ORDERED: BENZONATATE 100 MG CAPSULE. PO SCH (14:00)
[2019-04-10] MEDS ORDERED: CEPHALEXIN 250 MG CAPSULE PO SCH (14:15)
--- NOTE | 2019-04-10 14:35 | HP ---
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 She denied any nausea or vomiting, denied any shortness of breath. She has never had any history of coronary artery disease and has no family history of heart disease. She is not a smoker. She was evaluated initially in the Emergency Room and her initial lab work showed her troponin to be less than 0.017. Her EKG showed that she was in sinus rhythm with a rate of 69 beats per minute with no ST segment elevation or depression. The patient was admitted to do 2 more sets of cardiac enzyme and to consult the Cardiology team and to also check her fasting lipid profile. PAST MEDICAL HISTORY: Significant for nephrolithiasis, migraine headache and depression as well as attention deficit hyperactivity syndrome. PAST SURGICAL HISTORY: Right knee arthroscopic surgery, tonsillectomy. She had had cystoscopy with retrograde pyelography, stent deployment and lithotripsy. ALLERGIES: SHE IS ALLERGIC TO DIAZEPAM, DIPHENHYDRAMINE, MIDAZOLAM, PROCHLORPERAZINE AND PROMETHAZINE. MEDICATIONS: She is currently on following medications: She is currently on citalopram hydrobromide 40 mg once a day, Adderall 30 mg capsule once a day. She is also on magnesium oxide 400 mg once a day and Linzess 145 mcg. FAMILY HISTORY: She has older brother alive at the age of 54 and has angina and hypertension. Her sister is older alive at the age of 53 and she has polio. Her father at age 74 because of pancreatic cancer and had hypertension. Mother is alive at age of 76 and has type 2 diabetes mellitus. SOCIAL HISTORY: She is , has no children of her own. She has 2 stepchildren. She never smoked, drinks wine occasionally, does not use any drugs. REVIEW OF SYSTEMS: As per history of present illness. PHYSICAL EXAMINATION: GENERAL: On arrival to the Emergency Room, she looked well and was clearly in no apparent respiratory distress, somewhat pale, no jaundice, cyanosis or thyromegaly. No jugular venous distension. No lower limb edema. VITAL SIGNS: Her heart rate was 72, blood pressure was 122/89, temperature 98.1, respiratory rate was 18 and oxygen saturation was 96%. HEAD, EYES, EARS, NOSE AND THROAT: Showed normocephalic, atraumatic. NECK: Supple. HEART: Showed normal first and second heart sounds. No gallop or murmur. CHEST: Clear to auscultation. No crepitation or rhonchi. ABDOMEN: Distended, soft, nontender. NEUROLOGIC: She was grossly intact. LABORATORY DATA: Her lab work on admission showed a white cell count of 6600, hemoglobin 13, hematocrit 39, MCV 90 and platelet count of 278,000. Her chemistry showed a serum sodium 143, potassium 3.7, chloride 106, bicarbonate 29, anion gap of 8, BUN 15, creatinine 0.7, estimated GFR was 90 mL per minute. Her glucose was 87, calcium was 8.9, magnesium was 2.1. Total bilirubin, AST, ALT, alkaline phosphatase were normal. Total CK was 79. First set of cardiac enzymes showed troponin to be less than 0.017. Her total protein 7, albumin 3.6. Serum lipase was 243. Her prothrombin time, INR, aPTT and D-dimer all were normal. IMAGING: She did have a chest x-ray, which showed that there is no infiltrate, pneumothorax or effusion. The pericardial cardiac silhouette is within normal limits in size, so deferred. ASSESSMENT AND PLAN: In summary, this is a 43-year-old female patient, who was admitted with recurrent episode of chest pain that has responded to nitroglycerin. We will do 2 more sets of cardiac enzyme and will check her fasting lipid profile and consult the cardiology team. FRANCIS MONTEIRO MD DR: BOB/sven JOB#: [id number] / [id number]
[2019-04-10] MEDS ORDERED: LUBIPROSTONE 24 MCG CAPSULE PO SCH (17:00)
--- NOTE | 2019-04-10 17:33 | DS ---
DATE OF DISCHARGE: 04/10/2019 HOSPITAL COURSE: The patient is a 43-year-old female patient who was admitted yesterday with recurrent episodes of chest pain that has responded to sublingual nitroglycerin. She has had 3 sets of cardiac enzymes that ruled out myocardial infarction. She was seen in consultation by the buddhist monk who basically recommended transferring her to [facility] given that her complaint was very typical of chest pain, ischemic pain and the plan is to do cardiac catheterization and revascularization if deemed necessary. PHYSICAL EXAMINATION: GENERAL: When I saw her this afternoon, she looked well and was clearly in no apparent respiratory distress. VITAL SIGNS: Her heart rate was 56, blood pressure was 108/68, temperature 97.6, respiratory rate 20 and oxygen saturation was 96%. The rest of exam is stable. LABORATORY DATA: Her other 2 sets of cardiac enzymes are less than 0.017. DISPOSITION: The patient will be discharged to [facility] for cardiac catheterization. FINAL DISCHARGE DIAGNOSIS: Unstable angina. FRANCIS MONTEIRO MD DR: BOB/sven JOB#: [id number] / [id number]
[2019-04-10] MEDS ORDERED: FAMOTIDINE 20 MG TABLET PO SCH (21:00)
[2019-04-11] MEDS ORDERED: [UNRECOGNIZED DRUG - OTHER] PO SCH (09:00)
[2019-04-11] MEDS ORDERED: predniSONE 10 MG TABLET PO SCH (09:00)
[2019-04-11] MEDS ORDERED: FLUCONAZOLE 100 MG TABLET. PO SCH ×2 (09:00)
[2019-04-11] MEDS ORDERED: AMPHETAMINE PO SCH (09:00)
[2019-04-11] MEDS ORDERED: DEXTROAMPHETAMINE PO SCH (09:00)
== END 2019-04-10 14:43 | disposition short-term general hospital (02) ==
LOC: ER 15:09 → UNDOADMOB 18:05 → 1 SOUTH 18:05
PROVIDERS: ADMIT Internal Medicine; ATTEND Internal Medicine
DX: R07.89 Other chest pain (principal); G43.909 Migraine, unspecified, not intractable, without status migrainosus; F32.9 Major depressive disorder, single episode, unspecified; N20.0 Calculus of kidney; F90.9 Attention-deficit hyperactivity disorder, unspecified type; Z90.49 Acquired absence of other specified parts of digestive tract; Z98.890 Other specified postprocedural states
CPT/HCPCS: 36415; 71045; 80053; 80061; 82553; 83690; 83735; 83880; 84484; 85025; 85379; 85610; 85730; 93005; 99285; G0378; G0379

== ENCOUNTER → 2019-06-19 | Outpatient (CLI) | payer OTHER ==
[2019-06-04 18:15] VITALS: BP 101/50
[~2019-06-19] MED LIST changes: +ADDERALL XR; +CITA40TA5 PO; +DEXT30CA15 PO; +LINA145C PO; +MAGN500C10 PO; +mirapex
[2019-06-19 13:33] LABS: BASO % 1 % (0-3); EOS % 1 % (0-3); HEMATOCRIT 40.4 % (36.0-47.0); HEMOGLOBIN 13.6 g/dL (12.0-15.5); LYMPH % 25 % (24-48); MEAN CORPUSCULAR HEMOGLOBIN 31 pg (25-35); MEAN CORPUSCULAR HGB CONC 34 g/dL (31-37); MEAN CORPUSCULAR VOLUME 92 fL (79-100); MONO # 0.5 x10^3/uL (0.0-1.1); MONO % 6 % (0-9); NEUT # 5.3 x10^3uL (1.8-7.7); NEUT % 68 % (31-73); PLATELET COUNT 300 x10^3/uL (140-400); RED BLOOD COUNT 4.38 x10^6/uL (3.50-5.40); RED CELL DISTRIBUTION WIDTH 13.7 % (11.5-14.5); WHITE BLOOD COUNT 7.8 x10^3/uL (4.0-11.0)
[2019-06-19 13:45] LABS: ALBUMIN 3.7 g/dL (3.4-5.0); ALBUMIN/GLOBULIN RATIO 1.1 (1.0-1.7); CALCIUM 8.4 mg/dL (8.5-10.1); CREATININE 0.8 mg/dL (0.6-1.0); GFR 77.6; POTASSIUM 3.7 mmol/L (3.5-5.1); TOTAL BILIRUBIN 0.2 mg/dL (0.2-1.0); TOTAL PROTEIN 7.1 g/dL (6.4-8.2)
== END | disposition home or self-care (01) ==
LOC: LAB 13:13
PROVIDERS: ATTEND Family Medicine
DX: K92.2 Gastrointestinal hemorrhage, unspecified (principal)
CPT/HCPCS: 36415; 80053; 85025; 85610; 85730

== ENCOUNTER → 2019-10-14 | Outpatient (CLI) | payer OTHER ==
[2019-06-04 18:15] VITALS: BP 101/50
== END | disposition home or self-care (01) ==
LOC: LAB 14:15
PROVIDERS: ATTEND Internal Medicine Cardiovascular Disease
DX: Z20.828 Contact with and (suspected) exposure to other viral communicable diseases (principal)
CPT/HCPCS: 36415; U0003

== ENCOUNTER → 2019-12-24 | Outpatient (CLI) | payer OTHER ==
[2019-06-04 18:15] VITALS: BP 101/50
== END | disposition home or self-care (01) ==
LOC: LAB 14:36
PROVIDERS: ATTEND Internal Medicine Cardiovascular Disease
DX: R19.7 Diarrhea, unspecified (principal); R11.2 Nausea with vomiting, unspecified; Z20.828 Contact with and (suspected) exposure to other viral communicable diseases
CPT/HCPCS: U0003-CS

== ENCOUNTER 2020-02-10 00:45 | Emergency (ER) | payer OTHER ==
[~2020-02-10] VITALS: Ht 170.2 cm; Wt 97.5 kg
[2020-02-10] MEDS ORDERED: ONDANSETRON PF 4 MG/2 ML VIAL. ONE (01:03)
[2020-02-10 01:16] LABS: BASO # 0.1 x10^3/uL (0.0-0.2); BASO % 1 % (0-3); EOS # 0.1 x10^3/uL (0.0-0.7); EOS % 1 % (0-3); HEMATOCRIT 39.8 % (36.0-47.0); HEMOGLOBIN 13.3 g/dL (12.0-15.5); LYMPH # 2.7 x10^3/uL (1.0-4.8); LYMPH % 30 % (24-48); MEAN CORPUSCULAR HEMOGLOBIN 30 pg (25-35); MEAN CORPUSCULAR HGB CONC 33 g/dL (31-37); MEAN CORPUSCULAR VOLUME 91 fL (79-100); MONO # 0.9 x10^3/uL (0.0-1.1); MONO % 10 % (0-9); NEUT # 5.3 x10^3uL (1.8-7.7); NEUT % 59 % (31-73); PLATELET COUNT 302 x10^3/uL (140-400); RED BLOOD COUNT 4.39 x10^6/uL (3.50-5.40)
[2020-02-10 01:23] LABS: CALCIUM 8.6 mg/dL (8.5-10.1); GFR 59.7; POTASSIUM 3.6 mmol/L (3.5-5.1)
[2020-02-10] MEDS ORDERED: ASPIRIN CHEWABLE 81 MG TABLET. PO ONE (01:30)
[2020-02-10] MEDS ORDERED: ONDANSETRON PF 4 MG/2 ML VIAL. IVP ONE (01:30)
--- NOTE | 2020-02-10 01:50 | PHYS DOC ---
Past History Past Medical History: Kidney Stones, Migraines, Other Additional Past Medical Histor: postmenopausal, CP Past Surgical History: Tonsillectomy Additional Past Surgical Histo: knee surgery, lithotripsy Smoking: Non-smoker Alcohol Use: None Drug Use: None Adult General Chief Complaint Chief Complaint: CHEST PAIN HPI HPI Patient is a 44-year-old female who presents to the emergency room with left- sided chest pain. 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 She states she initially thought maybe it was a pulled muscle but then it started going into her shoulder and felt like a lot of pressure. She had some increased work of breathing and diaphoresis with this. She is also had some nausea. She had a similar episode like this last April where she had a cardiac catheterization that was normal. She denies any recent illnesses. She felt well when she went to work this morning. Review of Systems Review of Systems Complete ROS is negative unless otherwise documented in HPI Current Medications Current Medications Current Medications Medications (Trade) Dose Ordered Sig/Raymond Start Time Stop Time Status Last Admin Dose Admin Aspirin (Aspirin Chewable) 324 mg 1X ONCE 02/10/20 01:30 02/10/20 01:31 DC 02/10/20 01:36 324 MG Ketorolac Tromethamine (Toradol 30mg Vial) 30 mg 1X ONCE 02/10/20 01:45 02/10/20 01:46 UNV Ondansetron HCl (Zofran) 4 mg STK-MED ONCE 02/10/20 01:03 02/10/20 01:04 DC Allergies Allergies Allergies Coded Allergies Type Severity Reaction Last Updated Verified diazepam Allergy Unknown 11/16/18 Yes diphenhydramine Allergy Unknown 11/16/18 Yes midazolam Allergy Unknown 11/16/18 Yes prochlorperazine Allergy Unknown 09/10/18 Yes promethazine Allergy Unknown 09/10/18 Yes Physical Exam Physical Exam General: Awake, alert, NAD. Well Nourished, well hydrated. Cooperative HEENT: Atraumatic, EOMI, PERRL, airway patent, moist oral mucosa Neck: Supple, trachea midline Respiratory: CTA bilaterally, normal effort, no wheezing/crackles CV: RRR, no murmur, cap refill <2 GI: Soft, nondistended, nontender, no masses MSK: No obvious deformities Skin: Warm, dry, intact Neuro: A&O x3, speech NL, sensory and motor grossly intact, no focal deficits Psych: Anxious, not suicidal or homicidal Current Patient Data Vital Signs Vital Signs Date Time Temp Pulse Resp B/P (MAP) Pulse Ox O2 Delivery O2 Flow Rate FiO2 02/10/20 00:52 97.9 117 16 125/70 (88) 99 Room Air Lab Results Laboratory Tests Test 02/10/20 00:40 White Blood Count 9.0 x10^3/uL (4.0-11.0) Red Blood Count 4.39 x10^6/uL (3.50-5.40) Hemoglobin 13.3 g/dL (12.0-15.5) Hematocrit 39.8 % (36.0-47.0) Mean Corpuscular Volume 91 fL (79-100) Mean Corpuscular Hemoglobin 30 pg (25-35) Mean Corpuscular Hemoglobin Concent 33 g/dL (31-37) Red Cell Distribution Width 14.0 % (11.5-14.5) Platelet Count 302 x10^3/uL (140-400) Neutrophils (%) (Auto) 59 % (31-73) Lymphocytes (%) (Auto) 30 % (24-48) Monocytes (%) (Auto) 10 % (0-9) H Eosinophils (%) (Auto) 1 % (0-3) Basophils (%) (Auto) 1 % (0-3) Neutrophils # (Auto) 5.3 x10^3uL (1.8-7.7) Lymphocytes # (Auto) 2.7 x10^3/uL (1.0-4.8) Monocytes # (Auto) 0.9 x10^3/uL (0.0-1.1) Eosinophils # (Auto) 0.1 x10^3/uL (0.0-0.7) Basophils # (Auto) 0.1 x10^3/uL (0.0-0.2) Sodium Level 141 mmol/L (136-145) Potassium Level 3.6 mmol/L (3.5-5.1) Chloride Level 106 mmol/L (98-107) Carbon Dioxide Level 29 mmol/L (21-32) Anion Gap 6 (6-14) Blood Urea Nitrogen 16 mg/dL (7-20) Creatinine 1.0 mg/dL (0.6-1.0) Estimated GFR (Cockcroft-Gault) 59.7 Glucose Level 63 mg/dL (70-99) L Calcium Level 8.6 mg/dL (8.5-10.1) Troponin I Quantitative < 0.017 ng/mL (0-0.055) RU-Osk-N-Type Natriuretic Peptide 45 pg/mL (0-124) EKG EKG [] Radiology/Procedures Radiology/Procedures [] Heart Score Risk Factors: Risk Factors: DM, Current or recent (<one month) smoker, HTN, HLP, family his tory of CAD, obesity. Risk Scores: Risk Factors: DM, Current or recent (<one month) smoker, HTN, HLP, family history of CAD, obesity. Course & Med Decision Making Course & Med Decision Making Pertinent Labs and Imaging studies reviewed. (See chart for details) Patient is a 44-year-old female who presents to the emergency room complaining of chest pain. Patient had a recent cardiac catheterization that showed no plaque. Patient is low risk for cardiac chest pain. She has had pain for greater than 6 hours and does not need a delta troponin. EKG is unchanged. Troponin is negative. Electrolyte work-up is negative. She does have a glucose of 63 and did eat here in the emergency room. She was treated symptomatically. At this time does not appear that she has cardiac pathology and she will be discharged home to follow-up with Dr. Hugo. Patient's test results and vitals while in the ED were fully reviewed and discussed with the patient. Patient is stable and at this time does not need admission to the hospital. We have discussed strict return precautions and the importance of following up with their Primary Care Physician. Patient stated understanding and was given an opportunity to ask any questions. Patient is in agreement with plan. Dragon Disclaimer Dragon Disclaimer This electronic medical record was generated, in whole or in part, using a voice recognition dictation system. Departure Departure: Impression: Primary Impression: Chest pain Disposition: 01 DC HOME SELF CARE/HOMELESS Condition: STABLE Referrals: SUDHAKAR FAY MD (PCP) Patient Instructions: Chest Pain (Nonspecific) HEATH PISANO MD Feb 10, 2020 01:50
[2020-02-10] MEDS ORDERED: KETOROLAC 30 MG/ML VIAL. IVP ONE (02:00)
[2020-02-10 02:10] VITALS: BP 107/62
--- NOTE | 2020-02-10 02:28 | RAD ---
Study: CR CHEST PA LATERAL Indication: Chest pain. Comparison: 04/09/2019 Findings: Unremarkable/unchanged cardiomediastinal silhouette and zeke. Redemonstrated mild asymmetric elevation of the right hemidiaphragm. No lobar consolidation, pleural effusion or pneumothorax. Grossly intact osseous structures. Unremarkable upper abdomen. Impression: No acute radiographic abnormality of the chest. No significant change from 04/09/2019. Electronically signed by: REGINO HE MD (02/10/2020 2:24 AM) [id number]
--- NOTE | 2020-02-10 04:30 | EKG ---
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
== END 2020-02-10 02:15 | disposition home or self-care (01) ==
LOC: ER 00:45
DX: R07.89 Other chest pain (principal); G43.909 Migraine, unspecified, not intractable, without status migrainosus; Z87.442 Personal history of urinary calculi; Z88.8 Allergy status to other drugs, medicaments and biological substances
CPT/HCPCS: 36415; 71046; 80048; 83880; 84484; 85025; 93005; 96374; 96375; 99285; J1885; J2405

== ENCOUNTER → 2020-03-16 | Outpatient (CLI) | payer OTHER | LOC: LAB 14:30 | PROVIDERS: ATTEND Internal Medicine Cardiovascular Disease | DX: J02.9 Acute pharyngitis, unspecified (principal); R11.2 Nausea with vomiting, unspecified; R51.9 Headache, unspecified; Z20.828 Contact with and (suspected) exposure to other viral communicable diseases | CPT/HCPCS: U0003 ==

== ENCOUNTER → 2020-10-31 | Outpatient (CLI) | payer OTHER ==
--- NOTE | 2020-10-31 15:26 | RAD ---
EXAM: Left hand, 3 views. HISTORY: Pain. COMPARISON: None. FINDINGS: 3 views of the left hand are obtained. There is no fracture, dislocation or subluxation. No foreign body is seen. IMPRESSION: No acute osseous finding. Electronically signed by: Susi Salazar MD (10/31/2020 3:24 PM) [id number]
== END ==
LOC: RAD 15:08
PROVIDERS: ATTEND Nurse Practitioner Family
DX: M79.642 Pain in left hand (principal)
CPT/HCPCS: 73130

== ENCOUNTER → 2020-11-23 | Outpatient (CLI) | payer OTHER ==
--- NOTE | 2020-11-23 14:14 | RAD ---
EXAM: Right foot, 3 views; right ankle, 3 views. HISTORY: Pain and swelling. COMPARISON: None. FINDINGS: 3 views of the right foot and ankle are obtained. There is no fracture, dislocation or subl uxation. The alignment and joint spaces are unremarkable. The ankle mortise is intact. There is no os teochondral lesion. IMPRESSION: No acute osseous finding. Electronically signed by: Susi Salazar MD (11/23/2020 2:12 PM) [id number]
== END ==
LOC: RAD 08:44
PROVIDERS: ATTEND Family Medicine
DX: M25.571 Pain in right ankle and joints of right foot (principal); M25.471 Effusion, right ankle; M25.474 Effusion, right foot
CPT/HCPCS: 73610; 73630